=== PATIENT | male | born 1950 | race Caucasian/White ===

== ENCOUNTER 2021-06-09 13:20 | Outpatient (CLI) | payer MEDICARE, OTHER | END 2021-06-09 23:59 | disposition home or self-care (01) | LOC: LAB.N 13:20 | PROVIDERS: ATTEND Family Medicine | DX: R07.0 Pain in throat (principal); Z20.822 Contact with and (suspected) exposure to COVID-19 | CPT/HCPCS: 87070; 87275; 87276; U0004 ==

== ENCOUNTER 2022-08-02 13:52 | Outpatient (CLI) | payer MEDICARE, OTHER ==
[2022-08-02 14:44] VITALS: BP 144/80
--- NOTE | 2022-08-02 14:44 | SLEEP CARE CONSULTATION ---
Information from patient questionnaire entered by Mirela Butts. I have reviewed and concur with the information entered by Mirela Butts. This document represents the service I personally performed and the decisions made by me, Shital Lynn ARNP. History of Present Illness Service Date and Time: 08/02/2022 1352 Reason for Visit: New patient, Previously diagnosed sleep apnea, sleep apnea on CPAP therapy, Other Chief Complaint: reports: Snoring, Excessive daytime sleepiness, Observed pauses in breathing, Fatigue, Other (TO ESTABLISH SLEEP CARE) Date of Onset: 2000 Usual bedtime: 11PM Time it takes to fall asleep: A FEW MIN Snores at night: Yes Observed to quit breathing while asleep: Yes Number of times waking at night: ONCE, BUT NOT EVERY NIGHT Reasons for waking at night: reports: Pain, Other (COGH, DRY THROAT). denies: Choking, Gasping for air Toss, Turn, or Twitch while sleeping: Yes Recalls having dreams: Yes Usually gets out of bed at: 6AM Feels refreshed in the morning: No Morning headache: Yes (RESOLVES AFTERNOON) Sleepy or fatigued during the day: Yes Ever fallen asleep while driving: Yes Takes day naps: Yes Dreams during day naps: Yes Prior sleep studies: Yes (06/02/10 [facility]) Additional HPI information: ASCENCION MANCINI was previoulsy diagnosed to have severe, AHI 57.3, obstructive sleep apnea-hypopnea syndrome in 08/2000 at [facility] and comes in today to establish care for BIPAP therapy. - Parasomnia Symptoms Ever been unable to move upon waking from sleep: No Walks in sleep: No Talks in sleep: No Ever acted out dreams in sleep: No Ever felt weak in the knees when startled or emotional: No Bothered by creepy, crawly, restless sensations in legs: No Problems with memory or concentration: Yes CPAP Compliance Data - Data Reviewed with Patient Average duration of nightly device use: 5 hours 52 minutes Compliance rate %: 97 ( days used) Current pressure setting (cmH2O): 18 Average residual AHI: 3.5 Central apnea: 0.5 Obstructive apnea: 2.2 Hypopnea: 0.7 Compliance data discussion: He has a Airsense 11 BIPAP machine which was setup on 11/2021. He is using [employer] for his supplies. He is using a full face Mirage Quattro ResMed mask. Subjective Patient concerns: reports: mask leak noise (just needs an adjustment). denies: aerophagia, mask discomfort, air blowing in eyes, condensation in mask/hose, nasal congestion, dry mouth, nose, throat, epistaxis Observed to snore while using device: No Current pressure setting perceived as: comfortable On therapy, patient: reports: sleeping better, awakening more refreshed, being more awake and alert during the day, more rested overall. denies: drowsiness while driving Initial [place] Sleepiness Scale score: 19 (08/01/2022) Past Medical History Past Medical History: reports: Hypertension, Claustrophobia, Diabetes, Arthritis, Impotence, Other (RLS; migraines) Social History The patient's occupation is a RETIRED. Patient is Single and lives in . Have you smoked in the past 12 months: No Years of smokin Quit date: 1995 Alcohol use: Yes Alcohol amount and frequency: 1-2 ONCE A MONTH Caffeine use: Yes Caffeine amount and frequency: 2 CUPS COFEE DAILY Family History Family history of sleep disordered breathing: Yes Family Hx Sleep Apnea: Father: Snoring, Sleep apnea - Untreated, Sibling: Snoring, Sleep apnea - Untreated Allergies and Home Medications Known drug allergies: No Drug allergies reviewed: Yes (NKDA) Home medication list reviewed: Yes (see list in EMR) Review of Systems Cardiovascular: reports: high blood pressure, leg or foot swelling Gastrointestinal: reports: diarrhea. denies: heartburn Urinary: reports: frequency Neurological: reports: headaches Psychiatric: reports: claustrophobia. denies: anxiety, depression Ear/Nose/Throat: reports: wisdom teeth removed Endocrine: reports: increased urination. denies: thyroid disease Musculoskeletal: reports: joint pain (bilateral knees), neck pain, back pain Physical Exam Vital signs obtained and entered by: MIRELA Chavez MA Blood Pressure: 144/80 (LEFT ARM) Cuff size: regular Heart Rate: 78 O2 Saturation: 97 Height: 5 ft 8 in Weight: 151 lb 12.8 oz Body Mass Index: 23.1 BMI Classification: Normal Neck circumference: 15.5 Heart: regular rate and rhythm Lungs: clear bilaterally Impression and Plan 1. Obstructive Sleep Apnea-Hypopnea Syndrome, severe, with good treatment compliance and good apnea control. On CPAP therapy, the patient has better sleep quality and is more rested overall. Patient denies problems with nasal congestion, epistaxis, skin irritation or aerophagia. He does still like to take a nap and is a little tired. He is getting significant improvement of his sleep apnea but he averages 6 hours of sleep nightly . Most people require 7-9 hours of sleep for optimal mental and physical function. Less than 5-6 hours of sleep consistently can contribute to health risks and mortality. Thus patient is advised to strive for a minimum of 7 hours of sleep. He voiced understanding. Patient's apnea severity and rationale for treatment to reduce apnea, improve sleep quality and reduce cardiovascular and cerebrovascular events was reviewed. I also reviewed the benefit of consistent device use of CPAP for hypertension and diabetes. * Continue BIPAP pressure at 18/12 cmH2O * Update supplies * Notify me if snoring with mask or feeling that the pressure is too much or too little * Call this office if any problems using CPAP * Return for follow up in 1 year, or sooner if concerns arise Counseling Topics: Spare mask Visit Type: In Office Time Spent with Patient (minutes): 33 Provider Statement: I spent 100% of the Face to Face Visit with the patient with greater than 50% spent counseling the patient and coordination of care.
== END 2022-08-02 13:53 | disposition home or self-care (01) ==
LOC: SC 13:52
PROVIDERS: ATTEND Nurse Practitioner Family
DX: G47.33 Obstructive sleep apnea (adult) (pediatric) (principal); Z87.891 Personal history of nicotine dependence
CPT/HCPCS: 99203; 99212

== ENCOUNTER 2023-09-28 16:18 | Outpatient (CLI) | payer OTHER ==
--- NOTE | 2023-09-28 16:40 | Sleep Patient Instructions ---
Sleep Center Visit Summary - Patient Visit Information Reason for Visit: Annual Followup - Patient Instructions Additional Instructions: You will continue with CPAP therapy with pressure set at 12-18 cmH2O. A supply prescription will be updated with your DME. Please follow up with the sleep care office in 1 year. - Clinic Information Contact: [facility] [address] [place] [address] [email or web address] T: [phone]
--- NOTE | 2023-09-28 16:44 | SLEEP CARE CONSULTATION ---
Information from patient questionnaire entered by Mirela Butts. I have reviewed and concur with the information entered by Mirela Butts. This document represents the service I personally performed and the decisions made by , Shital Lynn ARNP. History of Present Illness Service Date and Time: 09/28/2023 1618 Previous diagnosis: Severe, Obstructive Sleep Apnea-Hypopnea Syndrome AHI: 57.3 (08/2000) Reason for follow up: annual (LAST SEEN 07/2022) Equipment type: CPAP (RESM[employer] Airsense 11, S/U 12/23/2021) Equipment obtained from: [employer] (getting supplies) Mask style: Full face (Quattro) Backup mask available: Yes Last cushion change: 3 months Prior sleep studies: Yes (06/02/10 [facility]) HPI additional information: ASCENCION MANCINI was diagnosed to have severe, AHI 57.3, obstructive sleep apnea- hypopnea syndrome and returned today for CPAP therapy annual follow-up. Sleep Study - Results Prior sleep studies: Yes (06/02/10 [facility] [place]) CPAP Compliance Data - Data Reviewed with Patient Average duration of nightly device use: 5 HRS 47 MINS Compliance rate %: 95 (09/27/23-09/25/23; 364/365 days used) Current pressure setting (cmH2O): 12-18 Average residual AHI: 2.6 Central apnea: 0.5 Obstructive apnea: 1.6 Hypopnea: 0.5 Average large leak: 0.3 L/min Compliance data discussion: At last appointment his pressure setting was entered in error. He is on a APAP machine set at 12-18 cmH2O. Subjective Missed days of use due to: reports: illness (in hospital) Patient concerns: reports: air blowing in eyes (sometimes). denies: aerophagia, mask discomfort, mask leak noise, condensation in mask/hose, nasal congestion, dry mouth, nose, throat, epistaxis Observed to snore while using device: No Current pressure setting perceived as: comfortable On therapy, patient: reports: sleeping better, awakening more refreshed, being more awake and alert during the day, more rested overall. denies: drowsiness while driving Initial [place] Sleepiness Scale score: 19 (08/01/2022) Current [place] Sleepiness Scale score: 8 (04/04/24) Allergies and Home Medications Known drug allergies: No Drug allergies reviewed: Yes Home medication list reviewed: Yes (new meds for BP and Heart) Allergy and home medication list: Allergies No Known Drug Allergies Allergy (Verified 09/26/23 10:25) Review of Systems Review of systems same as previous: No (Left total knee; tachycardia & elevated BP after surgery) Physical Exam Vital signs obtained and entered by: MIRELA Chavez MA Blood Pressure: 151/76 (LEFT ARM) Cuff size: regular Heart Rate: 77 O2 Saturation: 96 Height: 5 ft 8 in Weight: 146 lb 3.2 oz Body Mass Index: 22.2 BMI Classification: Normal Impression and Plan 1. Obstructive Sleep Apnea-Hypopnea Syndrome, severe, with good treatment compliance and good apnea control. On CPAP therapy, the patient has better sleep quality and is more rested overall. Patient has significant improvement of their sleep apnea and is satisfied with current CPAP therapy. Patient denies problems with oral dryness, nasal congestion, epistaxis, skin irritation or aerophagia. Patient's apnea severity and rationale for treatment to reduce apnea, improve sleep quality and reduce cardiovascular and cerebrovascular events was reviewed. I also reviewed the benefit of consistent device use of CPAP for hypertension, diabetes. * Continue auto CPAP pressure at 12-18 cmH2O * Update supply prescription * Notify me if snoring with mask or feeling that the pressure is too much or too little * Call this office if any problems using CPAP * Return for follow up in 12 months, or sooner if concerns arise Counseling Topics: Spare mask Prescriptions: Device supplies Follow up with Sleep Care in: 1 year Visit Type: In Office Time Spent with Patient (minutes): 21 Provider Statement: I spent 100% of the Face to Face Visit with the patient with greater than 50% spent counseling the patient and coordination of care.
[2023-09-28 16:49] VITALS: BP 151/76; O2SAT 96
== END 2023-09-28 16:19 | disposition home or self-care (01) ==
LOC: SC 16:18
PROVIDERS: ATTEND Nurse Practitioner Family
DX: G47.33 Obstructive sleep apnea (adult) (pediatric) (principal)
CPT/HCPCS: 99212; 99213